=== PATIENT | male | born 1985 | race African-American/Black ===

== ENCOUNTER 2018-11-09 02:08 | Emergency (ER) | payer MEDICARE, MEDICAID ==
[2018-11-09] MEDS ORDERED: OXYCODONE-ACETAMINOPHEN 5-325 MG TABLET PO ONE (05:39)
[2018-11-09] MEDS ORDERED: ONDANSETRON 4 MG TAB.RAPDIS PO ONE (05:39)
[2018-11-09] MEDS ORDERED: HYDROCODONE/ACETAMINOPHEN 5-325 MG (6 TAB/ER DISP) PO PRN (06:02)
[2018-11-09] MEDS ORDERED: ERYTHROMYCIN 0.5% OPH OINTMENT 3.5 GM TUBE OS ONE (06:02)
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
[2018-11-09] MEDS ORDERED: ERYTHROMYCIN 0.5% OPH OINT 1 GM UNIT DOSE ONE (06:37)
[2018-11-09 06:51] VITALS: BP 150/79
== END 2018-11-09 06:51 | disposition home or self-care (01) ==
LOC: ER 02:08
DX: H57.12 Ocular pain, left eye (principal); H53.8 Other visual disturbances; W50.0XXA Accidental hit or strike by another person, initial encounter
CPT/HCPCS: 99283; A9270 ×4; J3490; S0119